=== PATIENT | male | born 1940 | race Caucasian/White ===

== ENCOUNTER 2017-09-24 09:10 | Inpatient (IN) | payer MEDICARE, BC ==
[~2017-09-24] VITALS: Ht 172.7 cm; Wt 85.1 kg
[2017-09-26] VITALS (12 sets, daily range): BP systolic 113–155; BP diastolic 63–80; PULSE 73–94; TEMP 97.9–99.7
[2017-09-26] MEDS ORDERED: PROSCAR 5MG5 MG PO (05:36)
[2017-09-26] MEDS ORDERED: LIPITOR 80MG80 MG PO (05:36)
[2017-09-26] MEDS ORDERED: ASPIRIN 32325 MG/TAB PO (05:37)
[2017-09-26] MEDS ORDERED: PRINIVIL40 MG PO (06:27)
[2017-09-26 06:29] LABS: HEMATOCRIT 41.9 % (42.0-52.0); HEMOGLOBIN 14.2 g/dl (13.5-18.0); MEAN CELL VOLUME 92 fl (80.0-100.0); MEAN CORPUSCULAR HEMOGLOBIN 31 pg (27.0-31.0); MEAN CORPUSCULAR HGB CONC 34 g/dl (33.0-37.0); MEAN PLATELET VOLUME 9.6 fl (7.4-10.4); PLATELET COUNT 595 K/mm3 (130-400); RED BLOOD COUNT 4.57 M/mm3 (4.20-5.60); REDCELL DISTRIBUTION WIDTH-CV 13.3 % (11.5-14.5)
[2017-09-26 06:42] LABS: CALCIUM 9.2 mg/dL (8.4-10.2); CREATININE, serum 0.72 mg/dL (0.66-1.25); POTASSIUM 3.3 mmol/L (3.4-5.0)
[2017-09-27 03:47] VITALS: BP 130/66; PULSE 67; TEMP 98.6
[2017-09-27 07:20] LABS: CALCIUM 8.5 mg/dL (8.4-10.2); CREATININE, serum 0.67 mg/dL (0.66-1.25); PHOSPHOROUS 3.9 mg/dL (2.5-4.5); POTASSIUM 3.5 mmol/L (3.4-5.0)
[2017-09-27 07:22] LABS: HEMATOCRIT 35.8 % (42.0-52.0); HEMOGLOBIN 11.8 g/dl (13.5-18.0)
[2017-09-27 07:49] VITALS: BP 127/79; PULSE 74; TEMP 98.1
[2017-09-27 11:23] VITALS: BP 135/68; PULSE 86; TEMP 99
[2017-09-27 17:21] VITALS: BP 145/74; PULSE 85; TEMP 97.6
[2017-09-27 20:00] VITALS: BP 135/71; PULSE 80; TEMP 98.4
[2017-09-28 00:12] VITALS: BP 140/76; PULSE 84; TEMP 98.1
[2017-09-28 05:27] VITALS: BP 160/95; PULSE 90; TEMP 98.1
[2017-09-28 07:41] VITALS: BP 154/86; PULSE 93; TEMP 97.5
[2017-09-28 11:44] VITALS: BP 136/82; PULSE 84; TEMP 98.5
== END 2017-09-28 14:00 | disposition home or self-care (01) | DRG 331 ==
LOC: INPTSU 09-26 05:40 → SURG 09-26 07:30
PROVIDERS: Surgery
PROC: 8E0W4CZ Robotic Assisted Procedure of Trunk Region, Percutaneous Endoscopic Approach (ICD-10-PCS; 2017-09-26)
PROC: 0DTL4ZZ Resection of Transverse Colon, Percutaneous Endoscopic Approach (ICD-10-PCS; principal; 2017-09-26 07:30)
DX: K56.1 Intussusception (principal); D12.3 Benign neoplasm of transverse colon; I10 Essential (primary) hypertension; Z87.891 Personal history of nicotine dependence; M54.9 Dorsalgia, unspecified; G89.29 Other chronic pain; I65.21 Occlusion and stenosis of right carotid artery
CPT/HCPCS: A4314; A9284; J0690; J1100; J1170; J1650; J1885; J2405; J2704; J2710; J7050; J7120

== ENCOUNTER 2022-08-24 15:43 | Emergency (ER) | payer MEDICARE, BC ==
[~2022-08-24] VITALS: Ht 167.6 cm; Wt 80.9 kg
[~2022-08-24 15:43] MED LIST: ASPIRIN 32325 MG/TAB PO; LIPITOR 80MG80 MG PO; PRINIVIL40 MG PO; PROSCAR 5MG5 MG PO
[2022-08-24 15:49] VITALS: TEMP 100
[2022-08-24 16:21] LABS: MEAN CELL VOLUME 95 fl (80.0-100.0); MEAN CORPUSCULAR HGB CONC 32 g/dl (33.0-37.0); MEAN PLATELET VOLUME 8.9 fl (7.4-10.4); RED BLOOD COUNT 3.19 M/mm3 (4.20-5.60); REDCELL DISTRIBUTION WIDTH-CV 14.6 % (11.5-14.5)
[2022-08-24 16:24] LABS: HEMATOCRIT 30.2 % (42.0-52.0); HEMOGLOBIN 9.6 g/dl (13.5-18.0); MEAN CORPUSCULAR HEMOGLOBIN 30 pg (27-31)
[2022-08-24 16:40] LABS: ALBUMIN 3.2 gm/dL (3.4-4.8); BILIRUBIN,TOTAL 0.4 mg/dL (0.2-1.2); CALCIUM 8.6 mg/dL (8.4-10.2); CREATININE, serum 1.11 mg/dL (0.72-1.25); POTASSIUM 3.6 mmol/L (3.5-4.5); TOTAL PROTEIN 6.4 gm/dL (6.2-8.1)
[2022-08-24 16:53] LABS: BAND 35 % (0-10); HYPOCHROMIA 2+; LYMPHOCYTE 2 % (20.0-51.0); METAMYELOCYTE 1 % (0-0); NEUTROPHILS 58 % (42.0-75.2)
[2022-08-24 16:54] LABS: ANISOCYTOSIS 1+
[2022-08-24 16:56] LABS: OVALOCYTES 1+
[2022-08-24 16:57] LABS: PLATELET ESTIMATE INCREASED (NORMAL)
[2022-08-24 16:58] LABS: PLATELET COUNT 719 K/mm3 (130-400)
[2022-08-24 20:33] LABS: COLLECTION METHOD CLEAN CATCH
[2022-08-24 20:37] LABS: MUCOUS Present (NOT PRESENT); SQUAMOUS EPITHELIAL None Seen /hpf (0-10); URINE BACTERIA None Seen /hpf (NONE SEEN); URINE RBC 0-2 /hpf (0-2)
[2022-08-24 20:43] LABS: URINE COLOR Yellow (YELLOW)
[2022-08-24 20:44] LABS: URINE APPEARANCE Clear (CLEAR/HAZY); URINE BLOOD Negative (NEGATIVE); URINE GLUCOSE Negative (NEGATIVE); URINE KETONE 1+ (NEGATIVE); URINE NITRATE Negative (NEGATIVE); URINE PROTEIN(semi-quant) Negative (NEGATIVE); URINE UROBILINOGEN 0.2 (NEGATIVE)
[2022-08-24 20:58] VITALS: BP 104/68; PULSE 96
== END 2022-08-24 20:58 | disposition short-term general hospital (02) ==
LOC: COL.ER 15:43
PROVIDERS: Physician Assistant
DX: K57.33 Diverticulitis of large intestine without perforation or abscess with bleeding (principal); A41.9 Sepsis, unspecified organism
CPT/HCPCS: J0692; J7030; Q9967